=== PATIENT | female | born 1985 | race African-American/Black ===

== ENCOUNTER 2022-10-15 02:34 | Emergency (ER) | payer MEDICAID ==
[~2022-10-15] VITALS: Ht 167.6 cm; Wt 50.0 kg
[2022-10-15 02:36] VITALS: BP 118/78; PULSE 82; RESP 16; TEMP 98.4; O2SAT 99
[2022-10-15] MEDS ORDERED: IBUPROFEN 400MG TABLET PO ONE (04:15)
[2022-10-15] MEDS ORDERED: ACETAMINOPHEN 325MG TABLET PO ONE (04:15)
[2022-10-15] MEDS ORDERED: HYDROCODONE/ACETAMINOPHEN 5/325MG TABLET PO ONE (06:00)
[2022-10-15] MEDS ORDERED: CYCLOBENZAPRINE 10MG TABLET PO ONE (06:00)
[2022-10-15] MEDS ORDERED: KETOROLAC 60MG/2ML VIAL IM ONE (07:30)
[2022-10-15] MEDS ORDERED: TRAM50TA3 MT ×2 (09:03→09:19)
[2022-10-15 09:37] LABS: CLARITY URINE CLOUDY (CLEAR); COLOR URINE DARK YELLOW (YELLOW); GLUCOSE URINE NEGATIVE (NEGATIVE); KETONES URINE 2+ (NEGATIVE); LEUKOCYTE ESTERASE URINE TRACE (NEGATIVE); NITRITE URINE POSITIVE (NEGATIVE); OCCULT BLOOD URINE 3+ (NEGATIVE); PROTEIN URINE 2+ (NEGATIVE); SPECIFIC GRAVITY URINE 1.028 (1.005-1.030)
[2022-10-15 09:39] LABS: SQUAMOUS EPITHELIAL CELL URINE 1+ /lpf (RARE/1+); YEAST URINE NONE SEEN
[2022-10-15 10:01] LABS: *BARBITURATES SCREEN URINE NEGATIVE (NEGATIVE); METHADONE URINE SCREEN NEGATIVE (NEGATIVE); PHENCYCLIDINE URINE SCREEN NEGATIVE (NEGATIVE)
[2022-10-15 10:05] LABS: BACTERIA URINE 4+
[2022-10-15 10:34] LABS: *AMPHETAMINES SCREEN URINE PRESUMTIVE POSITIVE (NEGATIVE); *BENZODIAZEPINES SCREEN URINE PRESUMTIVE POSITIVE (NEGATIVE)
[2022-10-15 10:35] LABS: *COCAINE SCREEN URINE PRESUMTIVE POSITIVE (NEGATIVE); CANNABINOID URINE SCREEN PRESUMTIVE POSITIVE (NEGATIVE); ECSTASY MDMA SCREEN URINE CONF.TEST INDICATED (NEGATIVE); OPIATES URINE SCREEN PRESUMTIVE POSITIVE (NEGATIVE)
== END 2022-10-15 09:20 | disposition home or self-care (01) ==
LOC: ER 02:51
DX: S33.8XXA Sprain of other parts of lumbar spine and pelvis, initial encounter (principal); F41.9 Anxiety disorder, unspecified; E03.9 Hypothyroidism, unspecified; W18.39XA Other fall on same level, initial encounter; Y93.89 Activity, other specified; Y92.89 Other specified places as the place of occurrence of the external cause; Y99.8 Other external cause status
CPT/HCPCS: 80305; 81003; 72131; 72192; 96372; 99285; J1885; Z7610